=== PATIENT | male | born 2000 | race Hispanic/Latino ===

== ENCOUNTER → 2024-06-28 | Day surgery (SDC) | payer OTHER ==
[~2024-06-28] MED LIST: FENTANYL CITRATE/PF 100MCG/2 ML INJ ONE; HYDROXYZINE HCL10 MG PO; LIDOCAINE HCL 2% LOCAL INJ 5 ML SDV VIAL INJ ONE; METOCLOPRAMIDE HCL 10 MG/2ML VIAL ONE; OMEPRAZOLE40 MG PO; ONDANSETRON ODT8 MG PO; PROPOFOL IV EMULSION 10 MG/ML 20 ML VIAL ONE
[2024-06-28] MEDS: LACTATED RINGER'S 1,000 ML ONE (12:34)
[2024-06-28 13:49] VITALS: TEMP 97.8
[2024-06-28 14:00] VITALS: BP 111/52; PULSE 72; RESP 16; O2SAT 97
== END | disposition home or self-care (01) ==
LOC: OR 12:17
PROVIDERS: ATTEND Internal Medicine Gastroenterology
DX: K29.50 Unspecified chronic gastritis without bleeding (principal); K29.80 Duodenitis without bleeding; K31.89 Other diseases of stomach and duodenum; K20.90 Esophagitis, unspecified without bleeding; K21.9 Gastro-esophageal reflux disease without esophagitis; Z71.3 Dietary counseling and surveillance; D72.820 Lymphocytosis (symptomatic); Z71.89 Other specified counseling; F41.9 Anxiety disorder, unspecified
CPT/HCPCS: 43239; J2003; J2470; J2704; J2765; J3010; J7121